=== PATIENT | female | born 1965 | race Caucasian/White ===

== ENCOUNTER → 2020-10-11 | Outpatient (CLI) | payer OTHER ==
[~2020-10-11] MED LIST: EMGALITY120 MG/1 M SQ; HYDROCODON-ACE1 EAC4 PO; LASIX TAB 20 MG20 MG PO; LIPITOR20 MG PO; PLAVIX75 MG PO; POTASSIUM99 M1 PO; VIIBRYD20 MG PO; VITAMIN B12-FO1 EACH PO; WOMEN'S DAILY1 EAC1 PO
== END ==
LOC: OPSV2 08:30
DX: Z01.810 Encounter for preprocedural cardiovascular examination (principal); I49.8 Other specified cardiac arrhythmias
CPT/HCPCS: 93005

== ENCOUNTER → 2020-11-17 | Day surgery (SDC) | payer OTHER | END | disposition home or self-care (01) | LOC: OR 07:43 | DX: G56.01 Carpal tunnel syndrome, right upper limb (principal); M65.311 Trigger thumb, right thumb; M77.12 Lateral epicondylitis, left elbow; I25.10 Atherosclerotic heart disease of native coronary artery without angina pectoris; F17.210 Nicotine dependence, cigarettes, uncomplicated; Z98.84 Bariatric surgery status; Z88.0 Allergy status to penicillin; Z88.1 Allergy status to other antibiotic agents; Z79.02 Long term (current) use of antithrombotics/antiplatelets; Z79.899 Other long term (current) drug therapy | CPT/HCPCS: J0690; J1100; J2001; J2250; J2405; J2704; J3010; J7120 ==

== ENCOUNTER → 2021-01-18 | Outpatient (CLI) | payer OTHER ==
[2021-01-18 11:34] LABS: HEMOGLOBIN 14.1 gm/dl (12.3-15.3); RED BLOOD COUNT 4.17 M/UL (4.00-5.10); WHITE BLOOD COUNT 10.2 K/UL (4.5-11.0)
[2021-01-19 11:15] LABS: RHEUMATOID ARTHRITIS FACTOR <10.0 IU/mL (0.0-13.9)
== END ==
LOC: LAB 10:34
PROVIDERS: Nurse Practitioner Family
DX: M79.672 Pain in left foot (principal); G89.29 Other chronic pain; M25.50 Pain in unspecified joint; Z87.39 Personal history of other diseases of the musculoskeletal system and connective tissue; M79.10 Myalgia, unspecified site
CPT/HCPCS: 36415; 73630; 82550; 82728; 83520; 84439; 84443; 85025; 85652; 86140; 86200; 86431